=== PATIENT | female | born 1940 | race Caucasian/White ===

== ENCOUNTER → 2017-10-19 09:35 | Outpatient (CLI) | payer MEDICARE, OTHER, SELFPAY ==
--- NOTE | 2017-10-19 09:40 | RAD_ITS ---
STUDY: X-RAY CHEST REASON FOR EXAM: Female, 76 years old. COUGH TECHNIQUE: Frontal and lateral views of the chest. COMPARISON: 10/21/2011 FINDINGS: Chronic appearing increased interstitial lung markings. There is no demonstrated pleural abnormality. Normal heart size. Normal mediastinum and noel. Normal visualized pulmonary arteries. There is atherosclerotic calcification of the aortic arch with tortuosity. There are diffuse degenerative changes of the visualized thoracic spine. There is degenerative osteoarthritis of the bilateral shoulders. There is no demonstrated abnormality of the visualized soft tissue structures of the upper abdomen. RAD/Chest PA and Lateral IMPRESSION: There are no acute findings. Electronically Signed: Jimmy Serna MD at 17:06 EDT , Service support ,
== END ==
PROVIDERS: Family Provider Internal Medicine; PCP Internal Medicine; Visit Provider Internal Medicine
DX: R05 Cough (principal)
CPT/HCPCS: 71046

== ENCOUNTER → 2018-12-01 09:25 | Outpatient (CLI) | payer MEDICARE, OTHER, SELFPAY ==
--- NOTE | 2018-12-01 09:28 | RAD_ITS ---
STUDY: X-RAY - LEFT HAND REASON FOR EXAM: Carpal tunnel syndrome. TECHNIQUE: 3 view(s) of the hand. COMPARISON: None. FINDINGS: Normal radiocarpal articulation. Normal distal radioulnar joint. Normal visualized carpal bones. Normal carpal articulations There are marginal osteophytes and moderately severe joint space narrowing of the carpometacarpal articulation of the thumb. Normal second through fifth carpometacarpal joints. Normal metacarpi. Normal metacarpophalangeal joint of the thumb. Normal interphalangeal joint of the thumb. Normal proximal and distal phalanges of the thumb. Normal metacarpophalangeal joints of the second through fifth fingers. Normal proximal and distal interphalangeal joints of the second through fifth fingers. Normal phalanges of the second through fifth fingers. There is a small soft tissue calcification at the ulnar aspect of the third middle phalangeal head. RAD/Hand Min 3 Views IMPRESSION: First carpometacarpal arthrosis. Electronically Signed: Augustin Edwards MD at 11:21 EDT Tel , Service support ,
--- NOTE | 2018-12-01 09:28 | RAD_ITS ---
STUDY: X-RAY - LEFT SHOULDER REASON FOR EXAM: Female, 78 years old. Shoulder pain TECHNIQUE: 4 view(s) of the shoulder. COMPARISON: None. FINDINGS: There is mild degenerative arthrosis of the glenohumeral articulation. There is hypertrophic osteoarthrosis of the acromioclavicular joint with inferior osseous spur formation. Normal acromion. Normal humeral head and visualized proximal humerus. There is periarticular soft tissue calcification consistent with a calcific tendinitis. Normal visualized pulmonary apex. RAD/Shoulder min 2 Views IMPRESSION: 1. Mild glenohumeral joint arthrosis. 2. 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 MRI may be useful. 3. 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 Electronically Signed: Stefano Waite MD at 15:55 EDT Tel , Service support ,
== END ==
PROVIDERS: Family Provider Internal Medicine; PCP Internal Medicine; Referring Provider Orthopaedic Surgery; Visit Provider Orthopaedic Surgery
DX: G56.02 Carpal tunnel syndrome, left upper limb (principal); M25.512 Pain in left shoulder
CPT/HCPCS: 73030; 73130

== ENCOUNTER 2018-12-20 10:14 | Day surgery (SDC) | payer MEDICARE, OTHER, SELFPAY ==
[2018-12-20] VITALS (7 sets, daily range): BP systolic 103–157; BP diastolic 49–58; PULSE 48–56; RESP 16; TEMP 36.6–36.8; O2SAT 96–98; BMI 26.7
--- NOTE | 2018-12-20 14:30 | PCM.HP.BLA ---
History and Physical Date of Admission: 12/20/18 I have re-examined the patient. There are no clinical changes since date of exam. Intake Intake Visit Reasons: CK LEFT FINGERS - NUMB Allergies No Known Allergies Allergy (Verified 05/27/16 15:26) Medications Ascorbic Acid [Vitamin C] 1,000 mg PO DAILY 05/27/16 [History Confirmed 05/27/16] Biotin 1,000 mcg PO DAILY 05/27/16 [History Confirmed 05/27/16] Cholecalciferol (VIT D3) [Vitamin D] 2,000 unit PO DAILY 05/27/16 [History Confirmed 05/27/16] Diltiazem CD [Cardizem CD] 360 mg PO DAILY 05/27/16 [History Confirmed 05/27/16] Flavoring Agent [Cinnamon] 2 cap PO DAILY 05/27/16 [History Confirmed 05/27/16] Glucosam/Srikanth-Msm1/C/Gume/Bosw [Osteo Bi-Flex Caplet] 1 ea PO DAILY 05/27/16 [History Confirmed 05/27/16] Grape Seed Extract [Grape Seed] 100 mg PO DAILY 05/27/16 [History Confirmed 05/27/16] Losartan/Hydrochlorothiazide [Losartan-Hctz 100-25 mg Tab] 1 ea PO DAILY 05/27/16 [History Confirmed 05/27/16] Magnesium Oxide [Magnesium] 400 mg PO DAILY 05/27/16 [History Confirmed 05/27/16] Ubidecarenone/Vitamin E Mixed [Wkc02-Vir E 100 mg-10 Unit Sfg] 1 ea PO DAILY 05/27/16 [History Confirmed 05/27/16] Oxycodone HCl/Acetaminophen [Percocet 5/325] 1 - 2 tab PO Q6H PRN PRN #60 tab 06/02/16 [Rx] PFSH Social History Smoking Status: Former smoker HPI CK LEFT FINGERS - NUMB: Details: Parts of this documentation were recorded by a scribe, this documentation accurately reflects the service provided and the decisions made by me, Candace Dimas, 12/01/18 0749. MICK LONDONO is a 78 year old F here today for new problem Patient states her 1st,2nd and 3rd digits of her left hand are constantly numb. When patient feels a pain over her deltoid when she moves her left middle fingers. Has good ROM of the 2nd through 5th digits but has stiffness of her left thumb. Patient also states that her left shoulder ROM is not very good either. Has constant pain over her deltoid that started 2 days ago, denies any injury. Has brittany chiropractor the pain/numbness which was not effective. Denies any recent images. ROS Const Reports system reviewed and no additional complaints, except as docu Eyes Reports system reviewed and no additional complaints, except as docu ENT Reports system reviewed and no additional complaints, except as docu Card Reports system reviewed and no additional complaints, except as docu Resp Reports system reviewed and no additional complaints, except as docu GI Reports system reviewed and no additional complaints, except as docu Musc Reports as per HPI Skin/Breast Reports system reviewed and no additional complaints, except as docu Neuro Yes system reviewed and no additional complaints, except as docu Psych Reports system reviewed and no additional complaints, except as docu Endo Reports system reviewed and no additional complaints, except as docu Allen/Lymph Reports system reviewed and no additional complaints, except as docu Aller/Immun Reports system reviewed and no additional complaints, except as docu Ortho Exam Left Wrist/Hand Left Wrist: Yes Durken's Test Sensation: Median: D Assessment & Plan Problems 1. Left carpal tunnel syndrome G56.02 Plan Explained that she has carpal tunnel in the left with thenar atrophy, today we can inject or we can release. Patient elects to proceed with release. We will address the shoulder in two weeks post surgery and discuss an injection. Reviewed the pre-operative plans with the patient. Risks and benefits of the procedure were fully explained, including but not limited to infection, neurovascular injury, continued pain, arthritis, stiffness, need for further surgery, re-injury, DVT, PE, general risks of anesthesia, and loss of limb or life. The patient understands all the risks and does wish to proceed with written consent. xrays of shoulder show calcific tendinitis, ac oa, and mild gh oa. see chart for further details. patient will return for shoulder eval at later date. Follow up two weeks post op or sooner if pain, swelling, numbness or associated symptoms, or concerns develop. All questions answered. Patient in agreement of plan. Orders Orders: Hand Min 3 Views 12/01/18 R52 Shoulder min 2 Views 06/07/19 R52 Humerus min 2 Views 12/01/18 M25.512 I have re-examined the patient. There are no clinical changes since date of exam.
--- NOTE | 2018-12-20 14:49 | DCINST_ITS ---
Discharge Diet: No Restrictions - Leave dressing clean, dry, and intact, follow- up in 2 weeks for dressing removal suture removal, call with concerns. Discharge Activity: May Not Drive May shower in (days): 1 Ice area for (Minutes): 20 - Every hour while awake. Weight Bearing Status: Weight bearing as tolerated Keep extremity elevated above heart level: Operative Extremity Call your doctor if your incision/area has: Continuous Slow Oozing, Sudden Increased Bleeding, Increased Pain/ Swelling, Increased Redness, Foul Smelling Discharge Call your doctor if you observe: Fever of 101 or Higher, Coldness, Increased Pain, Numbness or Tingling, Change in Color, Calf discomfort Allergies/Adverse Reactions: Allergies No Known Allergies Allergy (Verified 12/13/18 13:13) Medications to take at Discharge Ascorbic Acid [Vitamin C] 4,000 mg PO DAILY 05/27/16 Biotin 1,000 mcg PO DAILY 05/27/16 Cholecalciferol (VIT D3) [Vitamin D] 2,000 unit PO DAILY 05/27/16 Diltiazem CD [Cardizem CD] 2 cap PO DAILY 05/27/16 Flavoring Agent [Cinnamon] 2 cap PO DAILY 05/27/16 Glucosam/Srikanth-Msm1/C/Gume/Bosw [Osteo Bi-Flex Caplet] 1 each PO DAILY 05/27/16 Grape Seed Extract [Grape Seed] 100 mg PO DAILY 05/27/16 Losartan/Hydrochlorothiazide [Losartan-Hctz 100-25 mg Tab] 1 each PO DAILY 05/27/16 Magnesium Oxide [Magnesium] 400 mg PO DAILY 05/27/16 Ubidecarenone/Vitamin E Mixed [Gtn54-Rij E 100 mg-10 Unit Sfg] 2 each PO DAILY 05/27/16 Boswellia Len Cap 1 cap PO DAILY 12/13/18 Melatonin 5 mg PO QHS 12/13/18 Primary Care Physician: Harleen Jaeger DO [Primary Care Provider] - Test Results: Test results from this visit will be discussed in further detail at your follow-up appointment, if applicable. Please Follow Up With: Candace Dimas DO - [phone]
--- NOTE | 2018-12-20 14:50 | PCM.OPRPT ---
Report of Operation Date of Procedure: 12/20/18 Pre-Operative Diagnosis: left carpal tunnel syndrome Post-Operative Diagnosis: same Surgery/Procedure Performed:: left carpal tunnel release assistant tennis coach: Stas Borges Type of Anesthesia:: General Anesthesiologist: Rayo Cantrell Estimated Blood Loss (mL): none Fluids Replaced: 600cc lr Description of Procedure: Preoperative note Patient is a { 78 year old female } patient with nerve conduction study confirming carpal tunnel syndrome. Patient failed conservative treatment for her carpal tunnel elected proceed with left carpal tunnel release. Risks benefits and alternatives surgery discussed with patient. Risks including but not limited to blood loss, blood clot, infection, neurovascular injury, failure procedure, loss of life and loss of limb. Patient is aware like proceed with left carpal tunnel release. Operative note Patient seen and examined preoperative holding area. Left hand was marked. History and physical and consent reviewed. Patient was brought to the operating room placed supine on the operating table. Sign in, anesthesia, antibiotics were administered. Left upper extremity was prepped and draped after Mayte block was initiated. All bony prominences well-padded SCDs placed on bilateral lower extremities. We marked out our incisions for our carpal tunnel release at the intersection of Sydnee's line in the fourth ray flexed. We extended about a centimeter and a half. Timeout was performed. We then checked ensure that the Mayte block was working with pickups which it was. We then used a 15 blade to make a skin incision. We then dissected down tenotomy syllable of the transverse carpal ligament. We then used a new 15 blade cut through the transverse carpal ligament down to the level of the median nerve. We then further released the median nerve the combination of the 15 blade and tenotomies. The nerve was grayish in color and adherent to the transverse carpal ligament volarly. We released the transverse carpal ligament distally to the fat pad and then proximally under standard technique. We then palpated to ensure that we released all of the transverse carpal ligament which we did. We irrigated the incision with copious amounts of sterile saline. All bleeders were coagulated. The incision was closed with interrupted 4-0 nylon stitches. Tourniquet was deflated for total working time of 15 minutes. Patient tolerated procedure well there were no complications. Patient transferred to recovery room in stable condition. Postoperative note Hospital pharmacy has prescription Leave dressing clean dry and intact Follow-up in 2 weeks Call with concerns This note was generated with [employer] dictation software. It may contain incorrect words, spelling, and punctuation that were not noted in checking the note before signing.
[2018-12-20] MEDS: Cefazolin 2 GM in 0.9% Normal Saline 100 ML IV (14:54)
== END 2018-12-20 16:55 | disposition home or self-care (01) ==
LOC: SDC 10:16 → AC 10:19
PROVIDERS: Family Provider Internal Medicine; PCP Internal Medicine; Referring Provider Orthopaedic Surgery; Visit Provider Orthopaedic Surgery
PROC: (CPT 64721; principal; 2018-12-20 11:25)
DX: G56.02 Carpal tunnel syndrome, left upper limb (principal); E78.00 Pure hypercholesterolemia, unspecified; E11.9 Type 2 diabetes mellitus without complications; I10 Essential (primary) hypertension; Z78.0 Asymptomatic menopausal state; Z79.899 Other long term (current) drug therapy; Z87.891 Personal history of nicotine dependence; Z85.828 Personal history of other malignant neoplasm of skin
CPT/HCPCS: 64721; J7120; J2405

== ENCOUNTER → 2019-05-08 14:19 | Outpatient (CLI) | payer MEDICARE, OTHER, SELFPAY ==
[2019-01-03 08:40] VITALS: BMI 26.7
--- NOTE | 2019-05-08 14:22 | BI_ITS ---
MAMMOGRAPHY - BILATERAL SCREENING REASON FOR EXAM: Female, 78 years old. Routine annual screening examination. PERTINENT HISTORY: Non-contributory. TECHNIQUE: Digital bilateral breast ranjeet (3D mammographic acquisition) in the CC and MLO projections. 2-D mediolateral oblique (MLO) and craniocaudad (CC) views of both breasts were obtained. CAD: Full Field Digital Mammography with Computer Added Detection was performed. COMPARISON: Comparison is made with prior study dated July 13, 2017 and June 24, 2015. FINDINGS: Breast Composition: The breasts are heterogeneously dense, which may obscure small masses. There are no dominant masses or suspicious calcifications. No other significant abnormalities are identified. There has been no significant change since the prior study. BI/SCREEN MAMM (CAD) W/RANJEET BILAT IMPRESSION: Stable bilateral screening mammogram. Yearly follow-up mammogram recommended. (A) ASSESSMENT CATEGORY: BIRADS Category 1: Negative. A letter regarding these results will be sent to the patient by the facility within 30 days. Approximately 10% of breast cancers are not detected by mammography. A normal mammogram should not delay biopsy of a clinically suspicious abnormality. [id number] Electronically Signed: Darius Shahid, at 15:18 EST , Service support ,
== END ==
PROVIDERS: Family Provider Internal Medicine; PCP Internal Medicine; Referring Provider Internal Medicine; Visit Provider Internal Medicine
DX: Z12.31 Encounter for screening mammogram for malignant neoplasm of breast (principal); Z78.0 Asymptomatic menopausal state
CPT/HCPCS: 77063; 77067

== ENCOUNTER → 2020-05-29 08:33 | Outpatient (CLI) | payer MEDICARE, OTHER, SELFPAY ==
[2019-01-03 08:40] VITALS: BMI 26.7
--- NOTE | 2020-05-29 08:36 | BD_ITS ---
STUDY: DUAL ENERGY X-RAY ABSORPTIOMETRY / DXA REASON FOR EXAM: Female, 79 years old. Age of molly 50. Pat is 162.8# and 65 and quot; a loss of 1 and quot; per pat. Past hx of smoking. Currently using prempro and has used it in the past as well. Type II diabetic and controls it with her diet. Has a diuretic in her BPM. Takes calcium and a multi-vit. Exercises moderatly. TECHNIQUE: Bone Mineral Density (BMD) measurements of lumbar spine and bilateral hips were obtained. COMPARISON: Comparison is made with prior study dated 07/13/2017. FINDINGS: Lumbar Spine (L1-L4): g/cm2 (1.448) / T-score (2.3) / Z-score (4.1) Findings are suggestive of normal bone density with a low fracture risk. Left Femur Total: g/cm2 (1.195) / T-score (1.5) / Z-score (3.5) Left Femoral Neck: g/cm2 (1.372) / T-score (2.4) / Z-score (4.5) Right Femur Total: g/cm2 (1.236) / T-score (1.8) / Z-score (3.8) Right Femoral Neck: g/cm2 (1.207) / T-score (1.2) / Z-score (3.3) The T-Scores on the most recent prior examination were: Lumbar Spine (L1-L4): There has been improvement of bone density since the previous examination. Left Femur Total: which represents a worsening of 3%. Right Femur Total: which represents a worsening of 2.8%. BD/Dexa Bone Density Study IMPRESSION: The patient is considered normal as outlined below according to World Nasir Organization (WHO) criteria with a low fracture risk. There has been improvement of bone density since the previous examination. Reference Information: The T-score is the number of standard deviations above or below the standard which is normal for young adults at their peak bone mineral density. The World Health Organization (WHO) interprets the T-scores as follows: Above -1 Normal bone density Between -1 and -2.5 Osteopenia Equal to / or below -2.5 Osteoporosis As a practical clinical guideline, osteopenia may be graded as follows: Mild -1 through -1.5 Moderate -1.6 through -2.0 Severe -2.1 through -2.4 The Z-score is the number of standard deviations above or below age-matched controls. A Z-score of less than -1.5 would be considered abnormal. References: 1. NIH Osteoporosis and Related Bone Diseases www osteo.org 2. International Society for Clinical Densitometry www iscd.org 3. National Osteoporosis Foundation www nof.org Electronically Signed: Darius Shahid, at 12:45 EST , Service support ,
== END ==
PROVIDERS: PCP Internal Medicine; Referring Provider Internal Medicine; Visit Provider Internal Medicine
DX: Z78.0 Asymptomatic menopausal state (principal)
CPT/HCPCS: 77080

== ENCOUNTER 2021-09-16 11:19 | Outpatient (CLI) | payer MEDICARE, OTHER, SELFPAY ==
[2021-09-16 11:29] LABS: Bacteria 0 SEEN /hpf (None Seen); Mucous, Urine 0 SEEN /hpf (<or=2+); Red Blood Cells-Urine 0 SEEN /hpf (0-5)
[2021-09-16 15:11] LABS: Glucose, Dipstick Normal (Normal); Ketone-Dipstick Negative (Negative); Leukocyte Esterase-Dipstick 500 /ul (Negative); Nitrite-Dipstick Negative (Negative); Occult Blood-Urine Negative /ul (Negative); Protein-Dipstick 15 mg/dl (Negative); Urine Bilirubin Dipstick Negative (Negative); Urine Urobilinogen Normal (Normal)
[2021-09-16 15:12] LABS: Absolute Lymphocyte Count 1.49 X10^3/uL (0.83-4.51); Absolute Neutrophil Count 3.2 X10^3/uL (2.0-7.7); Basophil# 0.04 X10^3/uL; Basophil% 0.7 % (0-1); Eosinophil# 0.27 X10^3/uL; Eosinophils% 4.9 % (0-5); Hematocrit 35.8 % (37-47); Hemoglobin 11.8 g/dL (12.0-15.0); Lymphocyte # 1.49 X10^3/ul (0.83-4.51); Mean Corpuscular Hgb 29.8 pg (27.0-32.0); Mean Corpuscular Volume 90.4 fL (81-99); Mean Platelet Vol. 10.8 fl (6.2-12.0); Monocyte# 0.54 X10^3/uL; Monocyte% 9.8 % (0-10); NRBC Flagged by Analyzer 0 % (0-5); Neutrophil # 3.17 X10^3/uL (2.7-7.7); Neutrophil % 57.4 % (47-70); Platelet Count 243 K/mm3 (150-450); RBC Distribution Width CV 14.4 % (11.6-14.6); RBC Distribution Width SD 47.2 fl (35.1-43.9); Red Blood Count 3.96 M/mm3 (4.2-5.4); White Blood Count 5.5 K/mm3 (4.4-11.0)
[2021-09-16 15:15] LABS: Color, Urine Yellow (Yellow); Urine Clarity Clear (Clear)
[2021-09-16 15:17] LABS: Squamous Epithelial Cells - UA 0-5 SEEN /hpf (5-10); White Blood Cells 0-5 SEEN /hpf (0-5)
[2021-09-16 15:36] LABS: Microalbumin,Random Urine 25.8 mg/L (NO RANGE EST.); Microalbumin:Creatinine Ratio 26.1 mg/g CRE (<30 mg/g CRE)
[2021-09-16 15:44] LABS: ALB/GLOB Ratio 1.2 RATIO (0.9-2.4); AST(SGOT) 18 U/L (15-37); Alanine Aminotransfer ALT/SGPT 22 U/L (13-56); Alkaline Phosphatase 60 U/L (45-117); Anion Gap 6 (5-15); BUN 30 mg/dL (7-18); BUN/Creat Ratio 31.2 RATIO (10-20); Calcium,Total 9.8 mg/dL (8.5-10.1); Chloride 103 mmol/L (98-107); Cholesterol 284 mg/dL (200); Creatinine, Serum 0.96 mg/dL (0.55-1.02); EST Glomerular Filtration Rate 59 mL/min (>60); Est Glom Filt Rate - Afr Amer 72 mL/min (>60); Globulin 3.3 g/dL (2.2-4.2); Glucose 99 mg/dL (74-106); High Density Lipoprotein 94 mg/dL; Protein, Total 7.3 g/dL (6.4-8.2); Sodium Level 140 mmol/L (136-145); Thyroid Stim Hormone (TSH) 2.82 uIU/mL (0.358-3.74); Triglycerides 104 mg/dL; Very Low Density Lipoprotein 21 mg/dL (5-40)
== END 2021-09-16 23:59 | disposition home or self-care (01) ==
LOC: MTLAB 11:21
PROVIDERS: PCP Internal Medicine; Referring Provider Internal Medicine; Visit Provider Internal Medicine
DX: I10 Essential (primary) hypertension (principal); E78.5 Hyperlipidemia, unspecified
CPT/HCPCS: 36415; 80053; 80061; 81001; 82043; 82570; 84443; 85025

== ENCOUNTER 2021-10-12 12:17 | Outpatient (CLI) | payer MEDICARE, OTHER, SELFPAY ==
--- NOTE | 2021-10-12 12:20 | BI_ITS ---
MAMMOGRAPHY - BILATERAL SCREENING 3-D TOMOSYNTHESIS REASON FOR EXAM: Female, 80 years old. SCREENING PERTINENT HISTORY: No significant family history. TECHNIQUE: 2-D mammograms and 3-D Tomosynthesis of the breast (s) were performed. CAD was performed. COMPARISON: 05/08/2019 FINDINGS: The breast composition is heterogeneously dense that can obscure small breast masses. Scattered benign calcifications are seen. No dense spiculated masses or suspicious microcalcifications are identified. No architectural distortion is identified. There is no skin thickening or retraction. There has been no significant change since the prior study. BI/SCRN MAMM (CAD)W/RANJEET BILAT IMPRESSION: No mammographic signs of malignancy. Routine yearly mammograms recommended. ASSESSMENT CATEGORY: BIRADS Category 1: Negative. A letter regarding these results will be sent to the patient by the facility within 30 days. FOLLOW UP RECOMMENDATION: Yearly follow up mammogram recommended. (A) Approximately 10% of breast cancers are not detected by mammography. A normal mammogram should not delay biopsy of a clinically suspicious abnormality. Electronically Signed: Stefano Waite MD at 15:24 EDT ,
== END 2021-10-12 23:59 | disposition home or self-care (01) ==
LOC: OPBI 12:18
PROVIDERS: PCP Internal Medicine; Visit Provider Internal Medicine
DX: Z12.31 Encounter for screening mammogram for malignant neoplasm of breast (principal)
CPT/HCPCS: 77063; 77067

== ENCOUNTER 2021-11-19 10:30 | Outpatient (RCR) | payer MEDICARE, OTHER, SELFPAY ==
--- NOTE | 2021-09-24 10:25 | HP.PTEVAL_ITS ---
Patient's Visit Information MICK LONDONO is a 80 year old F referred to Physical Therapy by Dr. Harleen Jaeger DO with a diagnosis of ABNORMAILITY GAIT ,POOR POSTURE. Date of Evaluation: 09/24/21 Physical Therapist: Ang Wahl, PT, Cert MDT, OCS - Visit Plan Frequency: 2x /Week Duration: 4 Weeks Plan: PT INTERVETIONS AQUATIC THERAPY FOR FLEXBLITY ESPECIALLY HIP FLEXORS,STRENGTHENING LE,BALANCE AND GAIT TRAINING,POSTURE TRAINING AND STRENGTHENING - Subjective This 80 y/o female presents to physical therapy with abnormal gait and poor posture. Patient has had on going problems with gait for ~ [address] recommended Aquatic therapy . Patient DR assessed gait and posture. Patient has no falls. Patient sleeping good at night. Denies paresthesia/tingling in hands. Patient lives in 2 story home with with 11 steps back and front has 2 steps. Patient stays on 1st floor but goes to basement for laundry. Patient has min difficulty with cooking/cleaning. Patient goal is to improve balance and gait. SOCIAL: . VOCATION: housecleaning - Objective POSTURE: trunk flexed forward ,hips/knees flexed. GAIT: ambulates with decrease step length hip/knees flexed trunk flexed. SYMMMTIES: align. PALAPTION: unremarkable. NEURO: denies paresthesia/tingling. STAIRS: ascend/descend 12 steps with rails. MMT: quads/hams 4/5,hip flexion 4-/5 ,hip abduction 4-/5 ,ankle 4/5. FLEXABLITTY: hip flexors severe tight ,hamstrings min tight, piriformis mod tight. + Dago test - Balance/Special Test Scores Functional Gait Assessment Score: 23 % Disability: 23.3400 CATSIB Score (Max score 120 seconds): 105 Lower Extremity Functional Score: 46 - Goals Goal 1:: Patient to be I with Aquatic therapy program Goal Time Frame: 4-6 Weeks Goal 2:: Patient to improve quality of gait with increase steps length and posture 80% of the time. Goal Time Frame: 4-6 Weeks Goal 3:: Patient to improve functional gait assessment by 5 points to improve gait Goal Time Frame: 4-6 Weeks Goal 4:: Patient to improve CATSIB by by 5 points to improve balance Goal Time Frame: 4-6 Weeks Goal 5:: Patient to improve LFES SCORE by 5-10 points to improve gait Goal Time Frame: 4-6 Weeks Goal 6:: Patient to improve hip flexors to mod limited to improve gait Goal Time Frame: 4-6 Weeks - Rehabilitation Potential Physical Therapy Diagnosis: This patient has decrease posture with trunk flexed with tight hip flexors affects quality of gait ,decrease CATSIB and functional gait assessment thus will benefit from skilled PT Rehabilitation Potential: Good - Anticipated Interventions Patient/Client Instruction: Educate patient on: Condition, Plan of Care For the Purpose of:: To decrease pain, To improve muscle performance and motor function, To improve ability to perform ADL's, To increase tolerance to activity/condition/position, To improve ability of physical actions for home/community/work/leisure, To increase flexibility/ROM, To improve endurance, To improve balance, To improve safety with gait Therapeutic Exercise to Include: Strength training, Endurance training, Balance training, Postural training, Flexibilty training, Gait and locomotor training, In an aquatic setting, Active ROM For the Purpose of:: To increase ROM, To improve muscle performance and motor function, To increase tolerance to activity/condition/position, To improve ability of physical actions for home/community/work/leisure, To improve gait and locomotor functions, To improve health of tissue, To decrease soft tissue restriction, To increase flexibility/ROM, To improve endurance, To improve balance Thank you for the opportunity to evaluate your patient. For Medicare and Medicare HMO plans, please review the plan of care and approve it. It will need to be FAXED BACK to us at [phone] for Medicare purposes. For Medicare only, by signing this I certify the plan of care. Please let me know if there are questions or concerns regarding this plan of care. Physician Signature: Date:
--- NOTE | 2021-10-22 09:46 | HP.PTREVAL ---
Dr. Harleen Jaeger, DO, It has been my pleasure to treat MICK LONDONO over the last 8 visits for ABNORMAILITY GAIT ,POOR POSTURE. Please see the progress note below for an update on the physical therapy plan of care! Subjective: Patient is doing better.. walking better Objective/Function: POSTURE: mild forward posture. GAIT: reciprocal pattern mild forward posture decrease step length. MMT:4/5 quads/hams/hip/ankle Plan Plan: CONT WITH POC. PT INTERVETIONS AQUATIC THERAPY FOR FLEXBLITY ESPECIALLY HIP FLEXORS,STRENGTHENING LE,BALANCE AND GAIT TRAINING,POSTURE TRAINING AND STRENGTHENING Balance/Gait/Functional tests - Balance/Special Test Scores Functional Gait Assessment Score: 28 % Disability: 6.6700 CATSIB Score (Max score 120 seconds): 120 Lower Extremity Functional Score: 44 TUG Test Time Seconds: 14.02 Tug Test: <20 sec.=mostly independent 30 Second Chair Rise Test Seconds: 11 Goals Goal 1:: Patient to be I with Aquatic therapy program Goal Time Frame: 4-6 Weeks Goal 2:: Patient to improve quality of gait with increase steps length and posture 80% of the time. (NEW GOAL) IMPROVE 30 SEC SIT-STAND BY 3-5 Goal Time Frame: 4-6 Weeks Goal Progress: Goal Met Goal 3:: Patient to improve functional gait assessment by 5 points to improve gait(NEW GOAL) Goal Time Frame: 4-6 Weeks Goal 4:: Patient to improve CATSIB by by 5 points to improve balance. (NEW GOAL) IMPROVE TUG TEST BY < 10 SECONDS Goal Time Frame: 4-6 Weeks Goal 5:: Patient to improve LFES SCORE by 5-10 points to improve gait.( NEW GOAL) Goal Time Frame: 4-6 Weeks Goal 6:: Patient to improve hip flexors to mod limited to improve gait Goal Time Frame: 4-6 Weeks Goal Progress: Progressing Anticipated Interventions Patient/Client Instruction: Educate patient on: Condition, Plan of Care For the Purpose of:: To decrease pain, To improve muscle performance and motor function, To improve ability to perform ADL's, To increase tolerance to activity/condition/position, To improve ability of physical actions for home/community/work/leisure, To increase flexibility/ROM, To improve endurance, To improve balance, To improve safety with gait Therapeutic Exercise to Include: Strength training, Endurance training, Balance training, Postural training, Flexibilty training, Gait and locomotor training, In an aquatic setting, Active ROM For the Purpose of:: To increase ROM, To improve muscle performance and motor function, To increase tolerance to activity/condition/position, To improve ability of physical actions for home/community/work/leisure, To improve gait and locomotor functions, To improve health of tissue, To decrease soft tissue restriction, To increase flexibility/ROM, To improve endurance, To improve balance Please do not hesitate to contact me at [phone] by phone or if you have questions or concerns regarding this new plan of care! Sincerely, Ang Wahl, PT, Cert MDT, OCS
--- NOTE | 2022-03-03 13:18 | HP.PT.NRP ---
MICK LONDONO was seen in my office for initial evaluation on 09/24/21. The following Plan of Care was established for this patient: Initial Frequency: 2x /Week Initial Duration: 4 Weeks Patient/Client Instruction: Educate patient on: Condition, Plan of Care For the Purpose of:: To decrease pain, To improve muscle performance and motor function, To improve ability to perform ADL's, To increase tolerance to activity/condition/position, To improve ability of physical actions for home/community/work/leisure, To increase flexibility/ROM, To improve endurance, To improve balance, To improve safety with gait Therapeutic Exercise to Include: Strength training, Endurance training, Balance training, Postural training, Flexibilty training, Gait and locomotor training, In an aquatic setting, Active ROM For the Purpose of:: To increase ROM, To improve muscle performance and motor function, To increase tolerance to activity/condition/position, To improve ability of physical actions for home/community/work/leisure, To improve gait and locomotor functions, To improve health of tissue, To decrease soft tissue restriction, To increase flexibility/ROM, To improve endurance, To improve balance This patient was last seen in our office . Pertinent comments regarding their Physical therapy will appear below: Patient was seen for Aquatic therapy for abnormal gait and posture with patient doing well with transition to HEP At this point I will be discontinuing this patient from physical therapy. I would be happy to see this patient again in the future if found appropriate by the physician. Thank you! Ang Wahl, PT, Cert MDT, OCS Balance/Gait/Functional tests - Balance/Special Test Scores Functional Gait Assessment Score: 28 % Disability: 6.6700 CATSIB Score (Max score 120 seconds): 120 Lower Extremity Functional Score: 57 TUG Test Time Seconds: 14.02 Tug Test: <20 sec.=mostly independent 30 Second Chair Rise Test Seconds: 11
== END 2021-11-19 19:00 | disposition home or self-care (01) ==
LOC: PT 10:30
PROVIDERS: PCP Internal Medicine; Referring Provider Internal Medicine; Visit Provider Internal Medicine
DX: R29.3 Abnormal posture (principal); R26.89 Other abnormalities of gait and mobility
CPT/HCPCS: 97113; 97162; 97530

== ENCOUNTER → 2023-04-20 | Outpatient (CLI) | payer MEDICARE, OTHER, SELFPAY ==
[2023-04-20 12:55] LABS: Creatinine, Serum 1.31 mg/dL (0.55-1.02); EST Glomerular Filtration Rate 41 mL/min (>60); Est Glom Filt Rate - Afr Amer 50 mL/min (>60)
== END | disposition home or self-care (01) ==
PROVIDERS: PCP Internal Medicine; Referring Provider Orthopaedic Surgery; Visit Provider Orthopaedic Surgery
DX: N28.9 Disorder of kidney and ureter, unspecified (principal)
CPT/HCPCS: 36415; 82565

== ENCOUNTER → 2023-10-14 | Outpatient (CLI) | payer MEDICARE, OTHER, SELFPAY ==
--- NOTE | 2023-10-14 10:21 | BI_ITS ---
MAMMOGRAPHY - BILATERAL SCREENING REASON FOR EXAM: Female, 82 years old. Routine annual screening examination. PERTINENT HISTORY: Non-contributory. TECHNIQUE: Digital bilateral breast ranjeet (3D mammographic acquisition) in the CC and MLO projections. 2-D mediolateral oblique (MLO) and craniocaudad (CC) views of both breasts were obtained. CAD: Full Field Digital Mammography with Computer Added Detection was performed. COMPARISON: Comparison is made with prior study of October 12, 2021 and May 08, 2019. FINDINGS: Breast Composition: The breasts are heterogeneously dense, which may obscure small masses. There are no dominant masses or suspicious calcifications. No other significant abnormalities are identified. There has been no significant change since the prior study. BI/SCRN MAMM (CAD)W/RANJEET BILAT IMPRESSION: Stable bilateral screening mammogram. Yearly follow-up mammogram recommended. (A) ASSESSMENT CATEGORY: BIRADS Category 1: Negative. A letter regarding these results will be sent to the patient by the facility within 30 days. Approximately 10% of breast cancers are not detected by mammography. A normal mammogram should not delay biopsy of a clinically suspicious abnormality. [id number] Electronically Signed: Darius Shahid MD at 12:08 EDT ,
--- NOTE | 2023-10-14 10:21 | BD_ITS ---
STUDY: DUAL ENERGY X-RAY ABSORPTIOMETRY / DXA REASON FOR EXAM: Female, 82 years old. 627.8Menopausal postmenopausal BONE DENSITY REASON FOR EXAM TECHNIQUE: Bone Mineral Density (BMD) measurements of lumbar spine and bilateral hips were obtained. COMPARISON: Comparison is made with prior study dated May 29, 2020. FINDINGS: Lumbar Spine (L1-L4): g/cm2 (1.217) / T-score (1.5) / Z-score (4.3) Findings are suggestive of normal bone density with a low fracture risk. Left Femur Total: g/cm2 (1.072) / T-score (1.1) / Z-score (3.3) Left Femoral Neck: g/cm2 (1.026) / T-score (1.6) / Z-score (4.0) Right Femur Total: g/cm2 (1.142) / T-score (1.6) / Z-score (3.9) Right Femoral Neck: g/cm2 (1.066) / T-score (2.0) / Z-score (4.4) The T-Scores on the most recent prior examination were: Lumbar Spine (L1-L4): There has been worsening of bone density since the previous examination. Left Femur Total: which represents a worsening of 4.6%. Right Femur Total: which represents a worsening of 1.9%. BD/Dexa Bone Density Study IMPRESSION: The patient is considered normal as outlined below according to World Nasir Organization (WHO) criteria with a low fracture risk. There has been worsening of bone density since the previous examination. Reference Information: The T-score is the number of standard deviations above or below the standard which is normal for young adults at their peak bone mineral density. The World Health Organization (WHO) interprets the T-scores as follows: Above -1 Normal bone density Between -1 and -2.5 Osteopenia Equal to / or below -2.5 Osteoporosis As a practical clinical guideline, osteopenia may be graded as follows: Mild -1 through -1.5 Moderate -1.6 through -2.0 Severe -2.1 through -2.4 The Z-score is the number of standard deviations above or below age-matched controls. A Z-score of less than -1.5 would be considered abnormal. References: 1. NIH Osteoporosis and Related Bone Diseases www osteo.org 2. International Society for Clinical Densitometry www iscd.org 3. National Osteoporosis Foundation www nof.org Electronically Signed: Darius Shahid MD at 10:40 EDT ,
== END | disposition home or self-care (01) ==
LOC: OPBD 10:19
PROVIDERS: PCP Internal Medicine; Referring Provider Internal Medicine; Visit Provider Internal Medicine
DX: Z12.31 Encounter for screening mammogram for malignant neoplasm of breast (principal); Z78.0 Asymptomatic menopausal state
CPT/HCPCS: 77063; 77067; 77080

== ENCOUNTER → 2024-10-15 | Outpatient (CLI) | payer MEDICARE, OTHER, SELFPAY ==
--- NOTE | 2024-10-15 09:10 | BI_ITS ---
EXAM: SCRN MAMM (CAD)W/RANJEET BILAT DATE: 10/15/2024 CLINICAL HISTORY: F, Age 83 y/o , SCRN MAMM (CAD)W/RANJEET BILAT No family history of breast cancer. BREAST CANCER RISK ASSESSMENT: Not assessed. TECHNIQUE: Bilateral screening digital breast tomosynthesis with 2D and 3D images. Computer aided detection. COMPARISON: Prior exam(s) dated October 14, 2023.. FINDINGS: TISSUE DENSITY: The breast tissue is heterogenously dense, which may obscure small masses. Bilateral Breast Mammographic Findings: No significant masses, calcifications or other abnormalities are identified. No suspicious masses, areas of developing architectural distortion, or suspicious calcifications. There has been no significant interval change. BI/SCRN MAMM (CAD)W/RANJEET BILAT IMPRESSION: OVERALL FINAL ASSESSMENT: BIRADS 1 NEGATIVE RECOMMENDATION: Routine annual follow-up in 1 Year A letter with findings and recommendations will be mailed to the patient. Reading Location: [place] [address]
== END | disposition home or self-care (01) ==
LOC: OPBI 09:10
PROVIDERS: PCP Internal Medicine; Referring Provider Internal Medicine; Visit Provider Internal Medicine
DX: Z12.31 Encounter for screening mammogram for malignant neoplasm of breast (principal)
CPT/HCPCS: 77063; 77067

== ENCOUNTER 2024-10-17 07:02 | Outpatient (CLI) | payer MEDICARE, OTHER, SELFPAY ==
--- NOTE | 2024-10-17 07:07 | CT_ITS ---
PROCEDURE: LIMITED CHEST CT CARDIAC ONLY REASON FOR EXAM: CARDIAC SCREENING, INTERMEDIATE CAD RISK TECHNIQUE: Supine chest CT without contrast,. One or more dose reduction techniques were used (e.g., Automated exposure control, adjustment of the mA and/or kV according to patient size, use of iterative reconstruction technique). COMPARISON: None FINDINGS: Hardware: None Lymph nodes: Small benign-appearing precarinal lymph node. Heart and Vasculature: Normal heart size. No pericardial effusion. Atherosclerotic calcifications of the thoracic aorta. Thoracic aorta and pulmonary arteries have normal contours; noncontrast technique limits evaluation. Calcification of the mitral valve annulus. Coronary Artery Calcifications: Present Lungs and Airways: Unremarkable Pleura: Unremarkable Upper Abdomen: Unremarkable Bones: Degenerative changes of the thoracic spine.
--- NOTE | 2024-10-17 16:44 | CA.SCORE ---
Calcium Scoring Date of Study:: 10/17/24 Indications Indications: high chol Coronary Calcium Scoring: High-resolution Computed Tomographic imaging of the chest was performed on [ 10/17/24], with particular attention paid to the coronary arteries. Images from the examination were analyzed for the presence and extent of coronary artery calcification , using coronary calcium quantification software. The patient tolerated the procedure well and there were no complications. The results of the coronary calcification analysis are provided below. Findings Coronary Artery Left Main (LM): 80 Left Anterior Descending (LAD): 157 Left Circumflex (LCX): 42 Right Coronary Artery (RCA): 192 Total Agatston Score: 471 Percentile Rankin-90% Calcium Scoring Interpretation: Different methods to categorize the overall amount of coronary plaque. Overall amount CAC SIS Visual of coronary plaque P1 Mild -100 <2 1-2 vessels with mild amount of plaque P2 Moderate 101-300 3-4 1-2 vessels with moderate amount, 3 vessels with mild amount of plaque P3 Severe 301-999 5-7 3 vessels with moderate amount, 1 vessel with severe amount of plaque P4 Extensive >1000 >8 2-3 vessels with severe amount of plaque Calcium Score: Severe: 3 vessels w/moderate amount, 1 vessel w/severe amt of plaque Conclusion: Moderate two-vessel three-vessel disease.
== END 2024-10-17 23:59 | disposition home or self-care (01) ==
LOC: CT 07:06
PROVIDERS: PCP Internal Medicine; Referring Provider Internal Medicine; Visit Provider Internal Medicine
DX: Z13.6 Encounter for screening for cardiovascular disorders (principal); E78.00 Pure hypercholesterolemia, unspecified
CPT/HCPCS: 75571; 76380

== ENCOUNTER → 2024-11-08 | Outpatient (CLI) | payer MEDICARE, OTHER, SELFPAY ==
--- NOTE | 2024-11-09 14:56 | STRESSREP ---
Stress Test Report Date: 11/08/2024 Procedure: Pharmacologic stress nuclear imaging study Indications: [Abnormal CTA] Consent: Per the patient Procedure: The patient underwent pharmacologic (Regadenoson) evaluation with a peak heart rate of 82 beats per minute (59%predicted maximal heart rate) and a peak blood pressure of 174/70 mmHg. The baseline ECG demonstrated normal sinus rhythm. EKG during lexiscan infusion revealed no significant ischemic changes. EKG post infusion revealed no significant ischemic changes [There were no cardiac dysrhythmias pretest, during pharmacologic infusion, or recovery]. [There was no complaint of chest discomfort during pharmacologic infusion or recovery]. The examination was discontinued secondary to completion of protocol. Impression: 1. Lexiscan stress test test is negative for Lexiscan infusion induced EKG changes of ischemia. 2. Lexiscan stress test test is negative for Lexiscan infusion induced chest pain. 3. Results of the nuclear portion of the test is as below Myocardial perfusion imaging study: Technique: The patient was injected with 11.7 millicuries of technetium 99m Cardiolite and subsequently rest SPECT Cardiolite nuclear imaging was obtained in the horizontal long, vertical long, and short axis views. The patient underwent pharmacologic [Regadenoson 0.4mg] evaluation. Please see above for details. The patient was injected with 36 millicuries of technetium 99m Cardiolite and subsequently stress SPECT Cardiolite nuclear imaging was obtained in the horizontal long, vertical long, and short axis views. A gated Cardiolite study at peak stress was obtained. Interpretation: Rest and stress SPECT Cardiolite nuclear imaging status post realignment, normalization, and attenuation correction demonstrate no evidence of significant ischemia or infarction. Gated images reveal no significant regional wall motion abnormalities. The reported LVEF is greater than 70%. Impression: 1. There is no evidence of significant ischemia or infarction. 2. Estimated ejection fraction is greater than 70%. This note was generated with [employer] software. It may contain incorrect words, spelling, and punctuation that were not noted in checking the note before signing.
== END | disposition home or self-care (01) ==
LOC: CVS 06:54
PROVIDERS: PCP Internal Medicine; Referring Provider Internal Medicine; Visit Provider Internal Medicine
DX: R93.1 Abnormal findings on diagnostic imaging of heart and coronary circulation (principal); I25.10 Atherosclerotic heart disease of native coronary artery without angina pectoris
CPT/HCPCS: 78452; 93017; A9500; A4216; J2785

== ENCOUNTER → 2024-11-26 | Outpatient (CLI) | payer MEDICARE, OTHER, SELFPAY ==
--- NOTE | 2024-11-26 13:49 | CT_ITS ---
PROCEDURE: CT ABD/PELVIS W/WO CONTRAST 11/26/2024 REASON FOR EXAM: ASYMPTOMATIC MICROSCOPIC HEMATURIA TECHNIQUE: Abdomen and pelvis CT with intravenous contrast. Coronal and Sagittal reconstruction series were provided. PATIENT PREPARATION: Per protocol ORAL CONTRAST TYPE: None. CONTRAST: Isovue-350 VOLUME: 100 mL One or more dose reduction techniques were used (e.g., Automated exposure control, adjustment of the mA and/or kV according to patient size, use of iterative reconstruction technique. RADIATION DOSE SUMMARY: CTDlvol: 16.6 mGy DLP: 829 mGycm COMPARISON: None. FINDINGS: Left renal simple cyst measuring 1.5 cm. Mild diffuse thickening of the bladder. Moderate diffuse spondylosis. The visualized lung bases are unremarkable. Normal liver. Normal gallbladder and extrahepatic biliary system. Normal spleen. Normal pancreas. Normal bilateral adrenal glands. Normal size of the right kidney. There is no right renal mass. There are no right renal calculi. There is no right hydronephrosis. Normal visualized right ureter. Normal size of the left kidney. There is no left renal mass. There are no left renal calculi. There is no left hydronephrosis. Normal visualized left ureter. Normal visualized stomach. Normal small intestine. Normal colon. The appendix is visualized and appears normal. There is no demonstrated peritoneal fluid. Calcified atheromatous plaques of the abdominal aorta. Normal inferior vena cava. Normal retroperitoneum. There is no pelvic mass lesion or lymphadenopathy. There is no pelvic fluid. Normal abdominal wall. CT/CT Abd/Pelvis W/WO Contrast IMPRESSION: No urolithiasis is seen. Mild diffuse thickening of the bladder, possibly mild cystitis. No mass lesion is identified. Left renal simple cyst measuring 1.5 cm. Reading Location: [place] [address]
== END | disposition home or self-care (01) ==
PROVIDERS: PCP Internal Medicine; Referring Provider Urology; Visit Provider Urology
DX: R35.1 Nocturia (principal); R31.21 Asymptomatic microscopic hematuria
CPT/HCPCS: 74178; Q9967

== ENCOUNTER 2024-12-17 15:27 | Outpatient (CLI) | payer MEDICARE, OTHER, SELFPAY ==
--- NOTE | 2024-12-17 10:00 | BLA_PTH ---
PATIENT: MICK LONDONO LOC: [facility] U#:[id number] AGE/SX: 84/F ROOM: RE12/17/[address]: Dr. Chele Parham MD : 1940 BED: DIS: 12/17/2024 SPEC #: [id number] RECD: 12/17/24 12:00 STATUS: JANES REKarey #: [id number] ANGELO: 12/17/24 10:[address]: Chele Parham DEPT: SURGICAL PATHOLOGY RECD BY: Luis Melendez ENTERED: 12/18/24 08:16 SP TYPE: BLADDER BX OTHR DR: Dr. Harleen Jaeger, DO Tissues: A - Urinary bladder, NOS Procedures: Immunohistochemical Stains Surgery Specimen Level IV IHC Stain ADDITIONAL HEADER OPERATION: Bladder biopsy PRE-OP DIAGNOSIS: Neoplasm of uncertain behavior of bladder TISSUE SUBMITTED: A- Bladder biopsy MICROSCOPIC DIAGNOSIS A. 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 COMMENT Selected slides/images were reviewed in intradepartmental consultation by Dr Joi Aponte ( pathology division, [facility] [place]). MICROSCOPIC DESCRIPTION Slides are reviewed. IHC was performed: CK20 focal weak, p53 negative (null), Ki67 patchy (not increased). A limited amount of tissue is present for evaluation. All matched controls reacted appropriately. These tests were developed and their performance characteristics determined by [facility]. They may not have been cleared or approved by the U.S. Food and Drug Administration. The FDA has determined that such clearance or approval is not necessary.? The above immunohistochemical/dualISH?markers are reviewed by the Pathologist. GROSS DESCRIPTION A. Received in formalin labeled with the patient's name and date of . Designated as bladder biopsy is a 0.2 cm johnson tissue fragment. Entirely submitted in 1 cassette. MT 12/18/2024 CPT:68442, 14912, [id number]
== END 2024-12-17 23:59 | disposition home or self-care (01) ==
LOC: LABSPEC 15:31
PROVIDERS: PCP Internal Medicine; Referring Provider Urology; Visit Provider Urology
DX: C67.9 Malignant neoplasm of bladder, unspecified (principal)
CPT/HCPCS: 88305; 88341; 88342

== ENCOUNTER → 2025-06-07 | Outpatient (CLI) | payer MEDICARE, OTHER, SELFPAY ==
[2025-06-07 10:24] LABS: Hematocrit 36.3 % (37-47); Hemoglobin 11.5 g/dL (12.0-15.0); Immature Granulocytes Count 0.030 X10^3/uL (0.0-0.0); Mean Corp Hgb Conc 31.7 g/dL (32-36); Mean Corpuscular Volume 94.3 fL (81-99); Mean Platelet Vol. 10.7 fl (6.2-12.0); NRBC Flagged by Analyzer 0 % (0-5); Platelet Count 263 K/mm3 (150-450); RBC Distribution Width CV 14.0 % (11.6-14.6); RBC Distribution Width SD 48.2 fl (35.1-43.9); Red Blood Count 3.85 M/mm3 (4.2-5.4); White Blood Count 7.2 K/mm3 (4.4-11.0)
[2025-06-07 10:44] LABS: Creatinine, Urine (random) 70.40 mg/dL (28.00-217.00); Microalbumin,Random Urine 20.0 mg/L (<20 mg/L)
[2025-06-07 10:53] LABS: AST(SGOT) 21 U/L (<=31); Alanine Aminotransfer ALT/SGPT 13 U/L (<=34); Albumin, Serum 4.5 g/dL (3.4-4.8); Alkaline Phosphatase 45 U/L (35-104); Anion Gap 10 (5-15); BUN 36 mg/dL (4-19); BUN/Creat Ratio 31.4 RATIO (10-20); Calcium,Total 10.2 mg/dL (7.6-11.0); Carbon Dioxide 29.4 mmol/L (21.0-32.0); Chloride 102 mmol/L (98-108); Cholesterol 299 mg/dL (<=200); Globulin 2.8 g/dL (2.2-4.2); Glucose 101 mg/dL (70-99); Low Density Lipoprotein Calc. 175 mg/dL; Potassium 4.2 mmol/L (3.3-5.1); Triglycerides 110 mg/dL; Very Low Density Lipoprotein 22 mg/dL (5-40); cholesterol:hdl ratio screen 2.82
== END | disposition home or self-care (01) ==
LOC: CIMLAB 08:31
PROVIDERS: PCP Internal Medicine; Referring Provider Internal Medicine; Visit Provider Internal Medicine
DX: I10 Essential (primary) hypertension (principal); E78.5 Hyperlipidemia, unspecified; R73.09 Other abnormal glucose
CPT/HCPCS: 36415; 80053; 80061; 82043; 82570; 84443; 85025